=== PATIENT | male | born 1970 | race African-American/Black ===

== ENCOUNTER 2018-02-19 14:42 | Emergency (ER) | payer MEDICAID, SELFPAY ==
[~2018-02-19] VITALS: Ht 188 cm; Wt 80.7 kg
[~2018-02-19 14:42] MED LIST: CLINDAMYCIN HC300 MG ORAL; NORCO 5-325 TA1 EACH ORAL; ZOFRAN ODT8 MG ORAL
[2018-02-19] MEDS ORDERED: NKM (14:56)
[2018-02-19] MEDS ORDERED: Ketorolac 60mg Inj IM ONE (15:00)
[2018-02-19 15:05] VITALS: BP 111/74
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
[2018-02-19] MEDS ORDERED: CICLOPIROX15 GM TP (15:47)
[2018-02-19] MEDS ORDERED: IBUPROFEN800 MG ORAL (15:47)
[2018-02-19] MEDS ORDERED: BACITRACIN-P28.35 GM TP (15:47)
[2018-02-19 15:56] VITALS: BP 111/74
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
== END 2018-02-19 15:57 | disposition home or self-care (01) ==
LOC: EMR 15:05
DX: S00.81XA Abrasion of other part of head, initial encounter (principal); Y04.2XXA Assault by strike against or bumped into by another person, initial encounter; Y92.410 Unspecified street and highway as the place of occurrence of the external cause; M72.2 Plantar fascial fibromatosis; B35.1 Tinea unguium; R51 Headache
CPT/HCPCS: 70450; 96372; 99284

== ENCOUNTER 2018-02-24 18:31 | Emergency (ER) | payer MEDICAID ==
[~2018-02-24] VITALS: Ht 190.5 cm; Wt 80.7 kg
[~2018-02-24 18:31] MED LIST changes: +BACITRACIN-P28.35 GM TP; +CICLOPIROX15 GM TP; +IBUPROFEN800 MG ORAL; +NKM
[2018-02-24 19:01] VITALS: BP 127/84
--- NOTE | 2018-02-24 19:25 | Emergency Room Report ---
History of Present Illness General Chief Complaint: General Complaint Source: Patient Present Illness HPI 48-year-old male presents emergency department complaining of 10 out of 10 in severity pain, erythema and swelling to the right foot that is progressing up the right calf times one week. Patient reports he was seen for foot injury and he has had worsening of his symptoms. Patient denies new trauma or fall he denies having his postop shoe feeling too tight. Patient reports increased temperature palpation. Patient denies fevers or chills. Reports he had several abrasions on the foot. Denies recent travel. Denies numbness tingling or loss of sensation or gross motor movements of the extremities, incontinence of bowel or bladder. Denies CP, Palpitations, LOC, AMS, dizziness, Changes in Vision, weakness or a sudden severe headache. Allergies: Coded Allergies: No Known Allergies (Unverified , 08/18/14) Patient History Past Medical History: see triage record Past Surgical History: none Pertinent Family History: none Immunizations: UTD Reviewed Nursing Documentation: PMH: Agreed; PSxH: Agreed Nursing Documentation-PMH Past Medical History: No Stated History Review of Systems All Other Systems: negative except mentioned in HPI Physical Exam Vital Signs Date Time Temp Pulse Resp B/P (MAP) Pulse Ox O2 Delivery O2 Flow Rate FiO2 02/24/18 18:41 98.2 98 16 127/84 97 Room Air 98.2 Sp02 EP Interpretation: reviewed, normal General Appearance: alert, GCS 15, non-toxic, mild distress Head: normocephalic, atraumatic Eyes: bilateral eye normal inspection, bilateral eye PERRL ENT: hearing grossly normal, normal voice Neck: full range of motion Respiratory: lungs clear, normal breath sounds, no wheezing, speaking full sentences Cardiovascular #1: regular rate, rhythm, no murmur, normal capillary refill, edema - RLE Gastrointestinal: non tender, soft Musculoskeletal: back normal, normal range of motion, non-tender, other - erythema, swelling RLE calf and ankle Neurologic: alert, oriented x3, responsive, motor strength/tone normal, sensory intact, speech normal, grossly normal Psychiatric: judgement/insight normal Skin: no rash, warm/dry, well hydrated, other - erythema, swelling RLE calf and ankle Medical Decision Making PA Attestation Dr. Srivastava is my supervising Physician whom patient management has been discussed with. Diagnostic Impression: Primary Impression: Cellulitis Qualified Codes: L03.115 - Cellulitis of right lower limb ER Course 48-year-old male presents emergency department complaining of 10 out of 10 in severity pain, erythema and swelling to the right foot that is progressing up the right calf times one week. Patient reports he was seen for foot injury and he has had worsening of his symptoms. Patient denies new trauma or fall he denies having his postop shoe feeling too tight. Patient reports increased temperature palpation. Patient denies fevers or chills. Reports he had several abrasions on the foot. Denies recent travel. Denies numbness tingling or loss of sensation or gross motor movements of the extremities, incontinence of bowel or bladder. Denies CP, Palpitations, LOC, AMS, dizziness, Changes in Vision, weakness or a sudden severe headache. Ddx considered but are not limited to cellulitis, DVT, fracture, d/L, gout Vital signs: are WNL, pt. is afebrile H&PE are most consistent with DVT Vs. Cellulitis RLE ORDERS: - Duplex US of the RLE: Negative for DVT -CBC: anemia -CMP,: potassium 3.4, normal LFT's -Co-ags: WNL ED INTERVENTIONS: -Loretto PO -Vancomycin IV -1Liter NS Bolus DISCHARGE: At this time pt. is stable for d/c to home. Will provide printed patient care instructions, and any necessary prescriptions. Care plan and follow up instructions have been discussed with the patient prior to discharge. Labs Test 02/24/18 20:00 White Blood Count 8.3 K/UL (4.8-10.8) Red Blood Count 3.68 M/UL (4.70-6.10) Hemoglobin 11.6 G/DL (14.2-18.0) Hematocrit 33.5 % (42.0-52.0) Mean Corpuscular Volume 91 FL (80-99) Mean Corpuscular Hemoglobin 31.4 PG (27.0-31.0) Mean Corpuscular Hemoglobin Concent 34.5 G/DL (32.0-36.0) Red Cell Distribution Width 10.9 % (11.6-14.8) Platelet Count 534 K/UL (150-450) Mean Platelet Volume 5.2 FL (6.5-10.1) Neutrophils (%) (Auto) 55.5 % (45.0-75.0) Lymphocytes (%) (Auto) 31.7 % (20.0-45.0) Monocytes (%) (Auto) 9.0 % (1.0-10.0) Eosinophils (%) (Auto) 0.8 % (0.0-3.0) Basophils (%) (Auto) 3.0 % (0.0-2.0) Prothrombin Time 10.6 SEC (9.30-11.50) Prothromb Time International Ratio 1.0 (0.9-1.1) Activated Partial Thromboplast Time 31 SEC (23-33) Sodium Level 137 MMOL/L (136-145) Potassium Level 3.4 MMOL/L (3.5-5.1) Chloride Level 102 MMOL/L (98-107) Carbon Dioxide Level 25 MMOL/L (21-32) Anion Gap 10 mmol/L (5-15) Blood Urea Nitrogen 6 mg/dL (7-18) Creatinine 0.8 MG/DL (0.55-1.30) Estimat Glomerular Filtration Rate > 60 mL/min (>60) Glucose Level 99 MG/DL (74-106) Lactic Acid Level 0.80 mmol/L (0.4-2.0) Calcium Level 9.2 MG/DL (8.5-10.1) Total Bilirubin 0.2 MG/DL (0.2-1.0) Aspartate Amino Transf (AST/SGOT) 35 U/L (15-37) Alanine Aminotransferase (ALT/SGPT) 22 U/L (12-78) Alkaline Phosphatase 82 U/L (46-116) Total Protein 8.5 G/DL (6.4-8.2) Albumin 3.2 G/DL (3.4-5.0) Globulin 5.3 g/dL Albumin/Globulin Ratio 0.6 (1.0-2.7) CT/MRI/US Diagnostic Results CT/MRI/US Diagnostic Results : Imaging Test Ordered: Duplex US RLE Impression Negative for acute DVT. Last Vital Signs Date Time Temp Pulse Resp B/P (MAP) Pulse Ox O2 Delivery O2 Flow Rate FiO2 02/24/18 19:01 98.2 98 16 127/84 97 Room Air 98.2 Disposition: HOME, SELF-CARE Condition: Improved Scripts Ibuprofen* (MOTRIN*) 400 Mg Tablet 400 MG ORAL THREE TIMES A DAY, #20 TAB 0 Refills Prov: Nancy Whittington 02/24/18 Hydrocodone Bit/Acetaminophen 5-325* (NORCO 5-325*) 1 Each Tablet 1 TAB ORAL Q6H PRN for For Pain, #9 TAB 0 Refills Prov: Nancy Whittington 02/24/18 Trimethoprim/Sulfamethoxazole 160/800* (BACTRIM DS TABLET*) 1 Each Tablet 1 TAB ORAL TWICE A DAY for 7 Days, #14 TAB Prov: Nancy Whittington 02/24/18 Cephalexin* (KEFLEX*) 500 Mg Capsule 500 MG ORAL EVERY 12 HOURS for 7 Days, #14 CAP 0 Refills Prov: Nancy Whittington 02/24/18 Referrals: NOT CHOSEN IPA/MD,REFERRING (PCP) Patient Instructions: Cellulitis Additional Instructions: Take medications as directed. Follow up with a Primary Care Provider in 3-5 days, even if your symptoms have resolved. --Please review list of primary care clinics, if you do not already have a primary care provider Return sooner to ED if new symptoms occur, or current symptoms become worse. Do not drink alcohol, drive, or operate heavy machinery while taking Loretto as this may cause drowsiness. - Please note that this Emergency Department Report was dictated using [employer] technology software, occasionally this can lead to erroneous entry secondary to interpretation by the dictation equipment. Nancy Whittington Feb 24, 2018 19:25
[2018-02-24] MEDS ORDERED: Vancomycin 1.5gm/D5W 250ml 250 ML IVPB ONE (19:30)
[2018-02-24] MEDS ORDERED: HYDROcodone/Acetamin 7.5/325 tab ORAL ONE (19:30)
[2018-02-24] MEDS ORDERED: BACTRIM DS TAB1 EAC1 ORAL (20:02)
[2018-02-24] MEDS ORDERED: NORCO 5-325 TA1 EACH ORAL (20:02)
[2018-02-24] MEDS ORDERED: CEPHALEXIN500 MG ORAL (20:02)
[2018-02-24] MEDS ORDERED: IBUPROFEN400 MG ORAL (20:02)
[2018-02-24 20:30] LABS: EOSINOPHILS % (AUTO) 0.8 % (0.0-3.0); HEMATOCRIT 33.5 % (42.0-52.0); HEMOGLOBIN 11.6 G/DL (14.2-18.0); LYMPHOCYTES % (AUTO) 31.7 % (20.0-45.0); MEAN CORPUSCULAR VOLUME 91 FL (80-99); NEUTROPHILS % (AUTO) 55.5 % (45.0-75.0); PLATELET COUNT 534 K/UL (150-450); RED BLOOD COUNT 3.68 M/UL (4.70-6.10); RED CELL DISTRIBUTION WIDTH 10.9 % (11.6-14.8); WHITE BLOOD COUNT 8.3 K/UL (4.8-10.8)
[2018-02-24 20:39] LABS: ANION GAP 10 mmol/L (5-15); BLOOD UREA NITROGEN 6 mg/dL (7-18); CALCIUM 9.2 MG/DL (8.5-10.1); CARBON DIOXIDE 25 MMOL/L (21-32); CHLORIDE 102 MMOL/L (98-107); CREATININE 0.8 MG/DL (0.55-1.30); POTASSIUM 3.4 MMOL/L (3.5-5.1); SODIUM 137 MMOL/L (136-145)
[2018-02-24 20:43] LABS: ALANINE AMINOTRANSFERASE 22 U/L (12-78); ALBUMIN 3.2 G/DL (3.4-5.0); ALBUMIN/GLOBULIN RATIO 0.6 (1.0-2.7); ALKALINE PHOSPHATASE 82 U/L (46-116); ASPARTATE AMINO TRANSFERASE 35 U/L (15-37); BILIRUBIN,TOTAL 0.2 MG/DL (0.2-1.0)
[2018-02-24 21:06] VITALS: BP 127/84
== END 2018-02-24 21:06 | disposition home or self-care (01) ==
LOC: EMR 19:21
DX: L03.115 Cellulitis of right lower limb (principal)
CPT/HCPCS: 36415; 80053; 83605; 85025; 85610; 85730; 87040; 93971; 96361; 96374; 99284

== ENCOUNTER 2018-03-05 19:31 | Emergency (ER) | payer MEDICAID ==
[~2018-03-05] VITALS: Ht 190.5 cm; Wt 78.5 kg
[~2018-03-05 19:31] MED LIST changes: +BACTRIM DS TAB1 EAC1 ORAL; +CEPHALEXIN500 MG ORAL; +IBUPROFEN400 MG ORAL
[2018-03-05] MEDS ORDERED: HYDROcodone/Acetamin 7.5/325 tab ORAL ONE (20:15)
[2018-03-05 20:39] LABS: BASOPHILS % (AUTO) 2.3 % (0.0-2.0); EOSINOPHILS % (AUTO) 1.1 % (0.0-3.0); HEMATOCRIT 36.6 % (42.0-52.0); HEMOGLOBIN 12.4 G/DL (14.2-18.0); LYMPHOCYTES % (AUTO) 51.3 % (20.0-45.0); MEAN CORPUSCULAR VOLUME 91 FL (80-99); MONOCYTES % (AUTO) 8.7 % (1.0-10.0); NEUTROPHILS % (AUTO) 36.6 % (45.0-75.0); PLATELET COUNT 568 K/UL (150-450); RED BLOOD COUNT 4.04 M/UL (4.70-6.10); RED CELL DISTRIBUTION WIDTH 11.5 % (11.6-14.8); WHITE BLOOD COUNT 5.2 K/UL (4.8-10.8)
[2018-03-05 21:04] LABS: ANION GAP 10 mmol/L (5-15); BLOOD UREA NITROGEN 8 mg/dL (7-18); CALCIUM 9.2 MG/DL (8.5-10.1); CARBON DIOXIDE 27 MMOL/L (21-32); CHLORIDE 102 MMOL/L (98-107); CREATININE 0.9 MG/DL (0.55-1.30); POTASSIUM 3.8 MMOL/L (3.5-5.1); SODIUM 139 MMOL/L (136-145)
--- NOTE | 2018-03-05 21:08 | Emergency Room Report ---
History of Present Illness General Chief Complaint: Lower Extremity Injury Source: Patient Present Illness HPI 48 You male returns to the ED c/o continued pain, swelling and warmth in the right lower extremity x 2 weeks. pt. was seen 9 days ago and received IV abx and continued as outpatient on oral abx. Pt. reports that he took the oral abx exactly as prescribed every 12 hours. denies trauma or fall since last visit. Pt. reports pain exacerbated with touch, and walking. reports keeping his leg elevated helps slightly. denies numbness or tingling. Denies ever having similar symptoms in the past. Denies CP, SOB, Dyspnea, palpitations, abdominal pain/tenderness or any other symptoms. Allergies: Coded Allergies: No Known Allergies (Unverified , 08/18/14) Patient History Past Medical History: see triage record Past Surgical History: none Pertinent Family History: none Immunizations: UTD Reviewed Nursing Documentation: PMH: Agreed; PSxH: Agreed Nursing Documentation-PMH Past Medical History: No Stated History Review of Systems All Other Systems: negative except mentioned in HPI Physical Exam Vital Signs Date Time Temp Pulse Resp B/P (MAP) Pulse Ox O2 Delivery O2 Flow Rate FiO2 03/05/18 19:41 98.1 111 16 129/80 97 Room Air 98.1 Sp02 EP Interpretation: reviewed, normal General Appearance: alert, GCS 15, non-toxic, mild distress Head: normocephalic, atraumatic Eyes: bilateral eye normal inspection, bilateral eye PERRL ENT: hearing grossly normal, normal voice Neck: full range of motion Respiratory: lungs clear, normal breath sounds, no respiratory distress, no wheezing, speaking full sentences Cardiovascular #1: regular rate, rhythm, no edema, normal capillary refill, edema - right ankle/ foot Cardiovascular #2: 2+ dorsalis pedis (R) Gastrointestinal: non tender, soft Musculoskeletal: back normal, gait/station normal, normal range of motion, swelling - right calf, and ankle. , other, tender - right calf, and ankle. Neurologic: alert, oriented x3, responsive, motor strength/tone normal, sensory intact, speech normal, grossly normal Psychiatric: judgement/insight normal Skin: no rash, warm/dry, well hydrated, other - hyperpigmentation vs erythema to the right LE, increased temperature of palpation. Medical Decision Making PA Attestation Dr. Le is my supervising Physician whom patient management and final disposition has been discussed with. Diagnostic Impression: Primary Impression: Edema, peripheral Additional Impressions: Leg pain, right Cellulitis of leg without foot ER Course 48 You male returns to the ED c/o continued pain, swelling and warmth in the right lower extremity x 2 weeks. pt. was seen 9 days ago and received IV abx and continued as outpatient on oral abx. Pt. reports that he took the oral abx exactly as prescribed every 12 hours. denies trauma or fall since last visit. Pt. reports pain exacerbated with touch, and walking. reports keeping his leg elevated helps slightly. denies numbness or tingling. Denies ever having similar symptoms in the past. Denies CP, SOB, Dyspnea, palpitations, abdominal pain/tenderness or any other symptoms. Ddx considered but are not limited to cellulitis,DVT, osteomyelitis, fracture, d /L, gout Vital signs: pt. was tachycardic on arrival , remaining VS were WNL, pt. is afebrile H&PE are most consistent with ORDERS: performed septic work up. -CBC: Unremarkable -CMP: Unremarkable -Latic Acid: WNL - Troponin: WNL -UA: WNL -UDS:Positive for amphetamines and THC -CK: WNL ED INTERVENTIONS: -[place] PO -Motrin 600mg -Patient is provided with crutches and instructed on their use - We do not identify an emergent condition at this time. With current presentation, pt. is stable for close outpatient follow up and conservative treatment. D/w pt. to return promptly to ED with worsening or new symptoms.- Pt. (and or responsible democrat) verbalizes' understanding and agreement with proposed treatment plan.proposed treatment plan. DISCHARGE: At this time pt. is stable for d/c to home. Will provide printed patient care instructions, and any necessary prescriptions. Care plan and follow up instructions have been discussed with the patient prior to discharge. Labs Test 03/05/18 20:22 03/05/18 21:12 White Blood Count 5.2 K/UL (4.8-10.8) Red Blood Count 4.04 M/UL (4.70-6.10) Hemoglobin 12.4 G/DL (14.2-18.0) Hematocrit 36.6 % (42.0-52.0) Mean Corpuscular Volume 91 FL (80-99) Mean Corpuscular Hemoglobin 30.8 PG (27.0-31.0) Mean Corpuscular Hemoglobin Concent 34.0 G/DL (32.0-36.0) Red Cell Distribution Width 11.5 % (11.6-14.8) Platelet Count 568 K/UL (150-450) Mean Platelet Volume 5.3 FL (6.5-10.1) Neutrophils (%) (Auto) 36.6 % (45.0-75.0) Lymphocytes (%) (Auto) 51.3 % (20.0-45.0) Monocytes (%) (Auto) 8.7 % (1.0-10.0) Eosinophils (%) (Auto) 1.1 % (0.0-3.0) Basophils (%) (Auto) 2.3 % (0.0-2.0) Sodium Level 139 MMOL/L (136-145) Potassium Level 3.8 MMOL/L (3.5-5.1) Chloride Level 102 MMOL/L (98-107) Carbon Dioxide Level 27 MMOL/L (21-32) Anion Gap 10 mmol/L (5-15) Blood Urea Nitrogen 8 mg/dL (7-18) Creatinine 0.9 MG/DL (0.55-1.30) Estimat Glomerular Filtration Rate > 60 mL/min (>60) Glucose Level 85 MG/DL (74-106) Lactic Acid Level 1.70 mmol/L (0.4-2.0) Calcium Level 9.2 MG/DL (8.5-10.1) Total Bilirubin 0.2 MG/DL (0.2-1.0) Aspartate Amino Transf (AST/SGOT) 47 U/L (15-37) Alanine Aminotransferase (ALT/SGPT) 24 U/L (12-78) Alkaline Phosphatase 69 U/L (46-116) Total Creatine Kinase 308 U/L (26-308) Troponin I 0.052 ng/mL (0.000-0.056) Total Protein 8.5 G/DL (6.4-8.2) Albumin 3.5 G/DL (3.4-5.0) Globulin 5.0 g/dL Albumin/Globulin Ratio 0.7 (1.0-2.7) Urine Color Pale yellow Urine Appearance Clear Urine pH 5 (4.5-8.0) Urine Specific [place] 1.010 (1.005-1.035) Urine Protein Negative (NEGATIVE) Urine Glucose (UA) Negative (NEGATIVE) Urine Ketones Negative (NEGATIVE) Urine Occult Blood Negative (NEGATIVE) Urine Nitrite Negative (NEGATIVE) Urine Bilirubin Negative (NEGATIVE) Urine Urobilinogen Normal MG/DL (0.0-1.0) Urine Leukocyte Esterase Negative (NEGATIVE) Urine Opiates Screen Negative (NEGATIVE) Urine Barbiturates Screen Negative (NEGATIVE) Phencyclidine (PCP) Screen Negative (NEGATIVE) Urine Amphetamines Screen Positive (NEGATIVE) Urine Benzodiazepines Screen Negative (NEGATIVE) Urine Cocaine Screen Negative (NEGATIVE) Urine Marijuana (THC) Screen Positive (NEGATIVE) EKG Diagnostic Results EP Interpretation: Dr. Le Rate: normal - 92 bpm Rhythm: NSR ST Segments: no acute changes ASA given to the pt in ED: No PA Scribe Text This Interpretation was scribed by EMILY Whittington. Chest X-Ray Diagnostic Results Chest X-Ray Diagnostic Results : Chest X-Ray Ordered: Yes # of Views/Limited/Complete: 1 View Indication: Other - part of septic work up. EP Interpretation: Yes EMILY Xray: Interpretation reviewed, by supervising MD, and agrees with findings. Interpretation: no consolidation, no effusion, no pneumothorax, no acute cardiopulmonary disease Impression: No acute disease Electronically Signed by: Nancy Whittington PA-C Other X-Ray Diagnostic Results Other X-Ray Diagnostic Results : X-Ray ordered: Right ankle # of Views/Limited Vs Complete: 3 View Indication: Swelling EP Interpretation: Yes PA Xray: Interpretation reviewed, by supervising MD, and agrees with findings. Interpretation: no dislocation, no soft tissue swelling, no fractures Impression: No acute disease Electronically Signed by: Nancy Whittington PA-C Last Vital Signs Date Time Temp Pulse Resp B/P (MAP) Pulse Ox O2 Delivery O2 Flow Rate FiO2 03/05/18 20:31 98.1 03/05/18 19:41 111 16 129/80 97 Room Air Disposition: HOME, SELF-CARE Condition: Stable Scripts Naproxen* (NAPROXEN*) 500 Mg Tablet.dr 500 MG ORAL TWICE A DAY for 10 Days, #20 TAB Prov: Nancy Whittington 03/05/18 Clindamycin Hcl (CLINDAMYCIN HCL) 300 Mg Capsule 300 MG ORAL FOUR TIMES A DAY for 7 Days, #28 CAP Prov: Nancy Whittington 03/05/18 Referrals: NOT CHOSEN [facility]/MD,REFERRING (PCP) Patient Instructions: Peripheral Edema Additional Instructions: Take medications as directed. Follow up with a Primary Care Provider in 3-5 days, even if your symptoms have resolved. --Please review list of primary care clinics, if you do not already have a primary care provider Return sooner to ED if new symptoms occur, or current symptoms become worse. - Please note that this Emergency Department Report was dictated using [employer] analysis engineer technology software, occasionally this can lead to erroneous entry secondary to interpretation by the dictation equipment. Nancy Whittington Mar 05, 2018 21:08
[2018-03-05 21:09] LABS: ALANINE AMINOTRANSFERASE 24 U/L (12-78); ALBUMIN 3.5 G/DL (3.4-5.0); ALBUMIN/GLOBULIN RATIO 0.7 (1.0-2.7); ALKALINE PHOSPHATASE 69 U/L (46-116); ASPARTATE AMINO TRANSFERASE 47 U/L (15-37); BILIRUBIN,TOTAL 0.2 MG/DL (0.2-1.0); CREATINE KINASE 308 U/L (26-308)
[2018-03-05 21:20] LABS: APPEARANCE,URINE CLEAR; BILIRUBIN, URINE NEGATIVE (NEGATIVE); COLOR,URINE PALE YELLOW; GLUCOSE, URINE (UA) NEGATIVE (NEGATIVE); KETONES,URINE NEGATIVE (NEGATIVE); LEUKOCYTE ESTERASE ,URINE NEGATIVE (NEGATIVE); NITRITE,URINE NEGATIVE (NEGATIVE); PH,URINE 5 (4.5-8.0); PROTEIN,URINE NEGATIVE (NEGATIVE); UROBILINOGEN,URINE NORMAL MG/DL (0.0-1.0)
[2018-03-05] MEDS ORDERED: Clindamycin 150mg cap ORAL ONE (21:30)
[2018-03-05] MEDS ORDERED: NAPROXEN500 M1 ORAL (21:43)
[2018-03-05] MEDS ORDERED: CLINDAMYCIN HC300 MG ORAL (21:43)
[2018-03-05 21:57] VITALS: BP 125/76
--- NOTE | 2018-03-06 09:42 | Diagnostic Imaging Report ---
. Indication: Chest pain Technique: One view of the chest Comparison: Findings: Lungs and pleural spaces are clear. Heart size is normal Impression: No acute process
--- NOTE | 2018-03-06 09:42 | Diagnostic Imaging Report ---
Indication: Reason For Exam: PAIN Technique: 3 views of the right ankle Comparison: none Findings: No acute fractures. No dislocations. Joint spaces are preserved. Normal mineralization. No radiopaque foreign body. There is soft tissue swelling on both sides of the joint, particularly laterally Impression: Evidence of soft tissue injury. No acute bony trauma
--- NOTE | 2018-03-13 18:48 | Cardiology Report ---
APPROVED REPORT EKG Measurement Heart [id number] Normal sinus rhythm Possible Left atrial enlargement Borderline ECG
== END 2018-03-05 22:02 | disposition home or self-care (01) ==
LOC: EMR 20:00 → 4E 20:22 → UNDOADMIN 20:22 → EDBEDREQ 21:08 → EMR 22:02
DX: L03.115 Cellulitis of right lower limb (principal); R00.0 Tachycardia, unspecified
CPT/HCPCS: 36415; 71045; 80053; 80307; 81003; 82550; 83605; 84484; 85025; 87040; 93005; 99284

== ENCOUNTER 2018-03-10 05:07 | Emergency (ER) | payer MEDICAID ==
[~2018-03-10] VITALS: Ht 190.5 cm; Wt 78.0 kg
[~2018-03-10 05:07] MED LIST changes: +NAPROXEN500 M1 ORAL
[2018-03-10 05:27] VITALS: BP 136/102
[2018-03-10] MEDS ORDERED: IBUPROFEN600 MG ORAL (05:44)
--- NOTE | 2018-03-10 05:44 | Emergency Room Report ---
History of Present Illness General Chief Complaint: General Complaint Source: Patient Present Illness HPI Is a 48-year-old male with history of chronic right foot pain. He had previous trauma to that area. He's been here several time for it. He woke up with swelling and pain to the bottom of his right foot. No trauma. No fever chills. Pain is 9 out of 10. Similar symptom in the past. Denies any other complaint. wwalking makes it worse. Allergies: Coded Allergies: No Known Allergies (Unverified , 08/18/14) Patient History Past Medical History: see triage record, old chart reviewed Past Surgical History: other Pertinent Family History: none Social History: Reports: smoking Immunizations: other Reviewed Nursing Documentation: PMH: Agreed; PSxH: Agreed Nursing Documentation-PMH Past Medical History: No Stated History Review of Systems Eye: Denies: eye pain, blurred vision ENT: Denies: ear pain, nose congestion, throat swelling Respiratory: Denies: cough, shortness of breath Cardiovascular: Denies: chest pain, palpitations Gastrointestinal: Denies: abdominal pain, diarrhea, nausea, vomiting Musculoskeletal: Reports: joint pain, joint swelling; Denies: back pain Skin: Denies: rash Neurological: Denies: headache, numbness Endocrine: Denies: increased thirst, increased urine Hematologic/Lymphatic: Denies: easy bruising All Other Systems: negative except mentioned in HPI Physical Exam Vital Signs Date Time Temp Pulse Resp B/P (MAP) Pulse Ox O2 Delivery O2 Flow Rate FiO2 03/10/18 05:13 97.6 94 17 136/102 98 Room Air 97.5 vitals normal Sp02 EP Interpretation: reviewed, normal General Appearance: well appearing, no apparent distress, alert Head: normocephalic, atraumatic Eyes: bilateral eye PERRL, bilateral eye EOMI ENT: hearing grossly normal, normal pharynx Neck: full range of motion, supple, no meningismus Respiratory: chest non-tender, lungs clear, normal breath sounds Cardiovascular #1: regular rate, rhythm, no murmur Gastrointestinal: normal bowel sounds, non tender, no mass, no organomegaly, no bruit, non-distended Musculoskeletal: back normal, gait/station normal, normal range of motion, other - Right foot: He has tenderness to the arch of the foot. No redness. Minimal swelling. This is unchanged for the last time I saw him. Pulses normal. Sensation normal. Neurologic: alert, oriented x3 Psychiatric: mood/affect normal Skin: warm/dry Medical Decision Making Diagnostic Impression: Primary Impression: Foot arch pain Qualified Codes: M79.671 - Pain in right foot ER Course Patient presents with pain to the right foot. No evidence of infection or trauma. I review his x-ray from last time is normal. No evidence of gout. We' ll discharge home. He arty been referred to cath laboratory technician but has not called. Last Vital Signs Date Time Temp Pulse Resp B/P (MAP) Pulse Ox O2 Delivery O2 Flow Rate FiO2 03/10/18 05:13 97.6 94 17 136/102 98 Room Air 97.5 Status: improved Disposition: HOME, SELF-CARE Condition: Stable Scripts Ibuprofen* (MOTRIN*) 600 Mg Tablet 600 MG ORAL THREE TIMES A DAY, #30 TAB 0 Refills Prov: AUTUMN CAMACHO M.D. 03/10/18 Referrals: NOT CHOSEN [facility]/,REFERRING (PCP) Additional Instructions: Follow-up with your doctor in 7 days. You may need a referral to see a cath laboratory technician for orthotic shoes. Return if symptom worsen. AUTUMN CAMACHO M.D. Mar 10, 2018 05:44
[2018-03-10 05:50] VITALS: BP 136/102
== END 2018-03-10 05:55 | disposition home or self-care (01) ==
LOC: EMR 05:26
DX: M79.671 Pain in right foot (principal); F17.200 Nicotine dependence, unspecified, uncomplicated; M79.89 Other specified soft tissue disorders
CPT/HCPCS: 99283